=== PATIENT | female | born 1980 | race Caucasian/White ===

== ENCOUNTER 2017-03-24 00:50 | Emergency (ER) | payer OTHER ==
[2017-03-24 01:56] VITALS: BP 131/70
== END 2017-03-24 01:56 | disposition home or self-care (01) ==
LOC: ED 00:50
DX: L03.221 Cellulitis of neck (principal)

== ENCOUNTER 2017-08-18 15:05 | Emergency (ER) | payer OTHER ==
[~2017-08-18] VITALS: Ht 160 cm; Wt 111.1 kg
[2017-08-18 15:07] VITALS: Ht 160 cm; Wt 111.1 kg
[2017-08-18 16:31] VITALS: BP 130/50
== END 2017-08-18 16:31 | disposition home or self-care (01) ==
LOC: ED 15:05
DX: M25.462 Effusion, left knee (principal); M23.92 Unspecified internal derangement of left knee

== ENCOUNTER 2017-11-22 23:43 | Emergency (ER) | payer OTHER ==
[~2017-11-22] VITALS: Ht 68.6 cm; Wt 108.0 kg
[2017-11-22 23:53] VITALS: Ht 68.6 cm; Wt 108.0 kg
[2017-11-23 01:23] VITALS: BP 130/75
== END 2017-11-23 01:23 | disposition home or self-care (01) ==
LOC: ED 23:43
DX: M25.462 Effusion, left knee (principal); E78.00 Pure hypercholesterolemia, unspecified; G89.29 Other chronic pain; M54.5 Low back pain

== ENCOUNTER 2018-07-10 22:02 | Emergency (ER) | payer OTHER ==
[~2018-07-10] VITALS: Ht 160 cm; Wt 107.5 kg
[2018-07-10 22:31] VITALS: Ht 160 cm; Wt 107.5 kg
[2018-07-11 00:40] VITALS: BP 127/83
== END 2018-07-11 00:40 | disposition home or self-care (01) ==
LOC: ED 22:02
DX: J11.1 Influenza due to unidentified influenza virus with other respiratory manifestations (principal); J40 Bronchitis, not specified as acute or chronic; F17.210 Nicotine dependence, cigarettes, uncomplicated; I10 Essential (primary) hypertension; E78.00 Pure hypercholesterolemia, unspecified; G89.29 Other chronic pain
CPT/HCPCS: 87804

== ENCOUNTER 2018-09-01 17:46 | Emergency (ER) | payer OTHER ==
[~2018-09-01] VITALS: Ht 160 cm; Wt 105.2 kg
[2018-09-01 17:55] VITALS: Ht 160 cm; Wt 105.2 kg
[2018-09-01 20:42] LABS: UA SPECIFIC GRAVITY >=1.030 (1.005-1.035); microscopic required? YES
[2018-09-01 20:43] LABS: urine erythrocyte 2+ (NEGATIVE)
[2018-09-01 20:49] VITALS: BP 157/91
== END 2018-09-01 20:49 | disposition home or self-care (01) ==
LOC: ED 17:46
PROVIDERS: Emergency Medicine
DX: N76.0 Acute vaginitis (principal); N39.0 Urinary tract infection, site not specified; F17.210 Nicotine dependence, cigarettes, uncomplicated; E78.00 Pure hypercholesterolemia, unspecified; Z98.890 Other specified postprocedural states
CPT/HCPCS: 87491; 87591

== ENCOUNTER 2019-10-16 23:33 | Emergency (ER) | payer OTHER ==
[~2019-10-16] VITALS: Ht 160 cm; Wt 105.8 kg
[2019-10-16 23:37] VITALS: Ht 160 cm; Wt 105.8 kg
[2019-10-17 00:28] LABS: CALCIUM 8.6 mg/dL (8.5-10.1); CARBON DIOXIDE 27.5 mmol/L (21-32); CHLORIDE SERUM 97 mmol/L (98-107); CREATININE SERUM 0.9 mg/dL (0.6-1.0); GFR1 > 60 mL/min; GLUCOSE SERUM 264 mg/dL (74-106); POTASSIUM SERUM 3.5 mmol/L (3.5-5.1); SODIUM SERUM 135 mmol/L (136-145)
[2019-10-17 00:32] LABS: ALBUMIN 3.5 g/dL (3.4-5.0); ALKALINE PHOSPHATASE 154 U/L (46-116); ALT/SGPT 47 U/L (14-59); AST/SGOT 29 U/L (15-37); BILIRUBIN TOTAL 0.3 mg/dL (0.20-1.00); LIPASE 147 IU/L (73-393); TOTAL PROTEIN, SERUM 7.7 g/dL (6.4-8.2)
[2019-10-17 00:47] LABS: BASOPHIL % 0.5 % (0-2); PLATELET COUNT 274 x10^3mcL (130-400); RED CELL DISTRIBUTION WIDTH 13.2 % (11.5-14.5)
[2019-10-17 01:25] VITALS: BP 138/80
== END 2019-10-17 01:25 | disposition home or self-care (01) ==
LOC: ED 23:33
DX: R07.89 Other chest pain (principal); E11.9 Type 2 diabetes mellitus without complications; R00.2 Palpitations; E78.00 Pure hypercholesterolemia, unspecified; Z98.890 Other specified postprocedural states
CPT/HCPCS: 85378; J1885; Q0092

== ENCOUNTER 2019-11-17 22:37 | Emergency (ER) | payer OTHER ==
[~2019-11-17] VITALS: Ht 160 cm; Wt 107.5 kg
[2019-11-17 22:42] VITALS: Ht 160 cm; Wt 107.5 kg
[2019-11-17 23:20] LABS: BASOPHIL % 0.5 % (0-2); PLATELET COUNT 270 x10^3mcL (130-400); RED CELL DISTRIBUTION WIDTH 13.3 % (11.5-14.5)
[2019-11-17 23:31] LABS: CALCIUM 8.3 mg/dL (8.5-10.1); CREATININE SERUM 1.2 mg/dL (0.6-1.0); POTASSIUM SERUM 3.5 mmol/L (3.5-5.1)
[2019-11-17 23:36] LABS: BILIRUBIN TOTAL 0.2 mg/dL (0.20-1.00); C REACTIVE PROTEIN 2.9 mg/dL (<=0.9); TOTAL PROTEIN, SERUM 7.4 g/dL (6.4-8.2); URIC ACID 3.7 mg/dL (2.6-6.0)
[2019-11-17 23:38] LABS: ALBUMIN 3.3 g/dL (3.4-5.0)
[2019-11-18 00:54] VITALS: BP 150/77
== END 2019-11-18 00:54 | disposition home or self-care (01) ==
LOC: ED 22:37
PROVIDERS: Emergency Medicine
DX: M25.531 Pain in right wrist (principal); M79.89 Other specified soft tissue disorders; R73.9 Hyperglycemia, unspecified; E78.00 Pure hypercholesterolemia, unspecified; F17.210 Nicotine dependence, cigarettes, uncomplicated; Z98.84 Bariatric surgery status
CPT/HCPCS: 99406; Q0092